=== PATIENT | female | born 1995 | race African-American/Black ===

== ENCOUNTER → 2018-07-08 11:34 | Outpatient (CLI) | payer OTHER, SELFPAY ==
[2018-07-08 12:29] LABS: Hematocrit 44.6 % (37-47); Hemoglobin 14.5 g/dl (12.0-15.0); Mean Corp Hgb Conc 32.5 g/gl (32-36); Mean Corpuscular Hgb 28.4 pg (27.0-32.0); Mean Corpuscular Volume 87.3 fL (81-99); Mean Platelet Vol. 11.5 fl (6.2-12.0); Platelet Count 266 K/mm3 (150-450); RBC Distribution Width CV 13.3 % (11.6-14.6); RBC Distribution Width SD 42.8 fl (35.1-43.9); Red Blood Count 5.11 M/mm3 (4.2-5.4); White Blood Count 6.9 K/mm3 (4.4-11.0)
[2018-07-08 12:37] LABS: Scan Indicated on CBC? Y/N NO
[2018-07-08 12:39] LABS: hCG Titer Quant., Serum < 1 mIU/mL (<9 non-preg)
[2018-07-08 12:47] LABS: Follicle Stimulating Hormone 7.4 mIU/mL; Prolactin 12.9 ng/mL; Thyroid Stim Hormone (TSH) 1.14 uIU/mL (0.358-3.74)
[2018-07-08 12:48] LABS: Progesterone Level 0.66 ng/mL (See Comment)
[2018-07-08 13:38] LABS: Hemoglobin A1c 5.6 % (4.2-6.3)
== END ==
PROVIDERS: Visit Provider Obstetrics & Gynecology
DX: N91.2 Amenorrhea, unspecified (principal)
CPT/HCPCS: 36415; 83001; 83002; 83036; 84144; 84146; 84439; 84443; 84481; 84702; 85027

== ENCOUNTER → 2018-07-22 20:36 | Outpatient (CLI) | payer OTHER, SELFPAY ==
[2018-07-22 22:53] LABS: Chlamydia Trachomatis by PCR POSITIVE (Negative); Neisserai gonorrhoeae by PCR Negative (Negative); Probe Check PASS; Sample Adequacy Control PASS; Specimen Processing Control PASS
[2018-07-27 13:38] LABS: HPV Reflexed? NOT INDICATED
== END ==
PROVIDERS: Referring Provider Obstetrics & Gynecology; Visit Provider Obstetrics & Gynecology
DX: Z12.4 Encounter for screening for malignant neoplasm of cervix (principal); Z11.3 Encounter for screening for infections with a predominantly sexual mode of transmission
CPT/HCPCS: 87491; 87591; 88175; G0145

== ENCOUNTER 2021-04-23 15:55 | Outpatient (CLI) | payer OTHER, MEDICAID, SELFPAY ==
[2021-04-23 16:21] VITALS: BP 112/59; PULSE 86; TEMP 36.3; O2SAT 98
[2021-04-23 16:26] VITALS: BP 112/59; PULSE 85
[2021-04-23 16:28] VITALS: BMI 46.5
--- NOTE | 2021-04-23 20:59 | OB.TRI.NOTE ---
HPI - General HPI Narrative SHASHI ESPINAL, is a 25 F at 38w2d who presents for vaginal spotting after vaginal exam in office today. Good movement. No LOF, denies large amount of vaginal bleeding, not wearing a pad, small amount of toilet paper. No contractions or signs of labor. Maternal Data Information Final KRISTINE: 05/05/21 PFSH PFSH Allergy/AdvReac Type Severity Reaction Status Date / Time aspirin AdvReac Other Verified 04/23/21 16:33 Latex, Natural Rubber AdvReac Rash Verified 04/23/21 16:33 Social History Smoking Status: Never smoker Physical Exam Narrative 1.5, unchanged from office NST FHR Rate Baby A Baseline: 125 Variability:: Moderate Accelerations:: 15 x 15 Decelerations:: None NST Reactive:: Yes Uterine Activity:: None Assessment & Plan (1) Vaginal bleeding during : PLAN: 1) No signs of labor 2) Bleeding precautions reviewed 3) D/C home
== END 2021-04-23 17:15 | disposition home or self-care (01) ==
LOC: WPOUT 16:06 → WP 16:07
PROVIDERS: Visit Provider Advanced Practice Midwife
DX: O46.93 Antepartum hemorrhage, unspecified, third trimester (principal); Z3A.38 38 weeks gestation of pregnancy
CPT/HCPCS: 59025; 59050; 99218; G0378

== ENCOUNTER 2021-05-01 15:11 | Inpatient (IN) | payer OTHER, MEDICAID, SELFPAY ==
[2021-05-01] VITALS (29 sets, daily range): BP systolic 78–139; BP diastolic 47–87; PULSE 67–182; TEMP 36.4–36.7; O2SAT 79–100; BMI 45.5
--- NOTE | 2021-05-01 14:31 | OB.TRI.NOTE ---
HPI - General HPI Narrative SHASHI ESPINAL, is a 25 F @ 39.3 weeks who presents s/p fall out of bed at 10am. pt reports hit left side of abdomen on floor. Denies VB, LOF. Good FM. Maternal Data Information Final KRISTINE: 05/05/21 PFS PFS Allergy/AdvReac Type Severity Reaction Status Date / Time aspirin AdvReac Other Verified 04/23/21 16:33 Latex, Natural Rubber AdvReac Rash Verified 04/23/21 16:33 Social History Smoking Status: Never smoker NST FHR Rate Baby A Baseline: 130 Variability:: Moderate Accelerations:: 15 x 15 Decelerations:: Variable (had one variable with quick return to baseline- kept on monitor and reactive cat 1 since that time. ) NST Reactive:: Yes FHR Category:: Category I Uterine Activity:: no ctx Assessment & Plan (1) Abdominal pain affecting : (2) Status post fall: PLAN: 25yo @ 39.3 weeks s/p fall from bed at 10am - well being established 1) NST reactive cat 1 2) per RN- no abdominal pain on palpation 3) follow up in office as scheduled
--- NOTE | 2021-05-01 15:00 | PCM.HP.OB ---
HPI - General HPI Narrative SHASHI ESPINAL, is a 25 F @ 39.3 weeks who was seen in triage for s/p fall was going to be dc home and had variable decelerations with good return to baseline. decision at [facility] time was to keep patient and proceed with IOL due to gestational age of 39 weeks and category 2 FHR due to variable deceleration. Maternal Data Information Final KRISTINE: 05/05/21 Final KRISTINE Source: US <20 weeks Gestational age: 39.3 PFSH PFSH Allergy/AdvReac Type Severity Reaction Status Date / Time aspirin AdvReac Other Verified 04/23/21 16:33 Latex, Natural Rubber AdvReac Rash Verified 04/23/21 16:33 Social History Smoking Status: Never smoker Vital Signs Vital Signs Vital Signs: 05/01/21 13:32 05/01/21 13:34 Temperature 97.7 F L Temperature Source Temporal Pulse Rate 83 83 Blood Pressure 118/63 118/63 BP Systolic 118 118 BP Diastolic 63 63 Pulse Ox 97 Weight Weight: 124 kg Body Mass Index (BMI) 45.5 Physical Exam Narrative VE: 3/6/-3 per RN Const alert and oriented x3 General Appearance: cooperative HEENT normocephalic GI GI Narrative: Gravid, non tender to palpation. OB / External & Speculum: external exam normal Extremity normal to inspection Skin no rashes or lesions noted Neuro oriented x3 and CN's II-XII intact bilaterally Psych Appearance: grossly normal Labs Labs Labs: Hct 44.6 % (37-47) Hgb 14.5 g/dl (12.0-15.0) C.trachomatis DNA (PCR) POSITIVE (Negative) H Assessment & Plan (1) Category II heart rate tracing during maternal care in third trimester: (2) 39 weeks gestation of : (3) Status post fall: PLAN: Admit to L&D [place] FHR/TOCO Epidural if requested for pain Monitor VS Anticipate pitocin for labor
[2021-05-01 16:12] LABS: Absolute Lymphocyte Count 1.74 X10^3/uL (0.83-4.51); Absolute Neutrophil Count 5.2 X10^3/uL (2.0-7.7); Basophil# 0.03 X10^3/uL; Basophil% 0.4 % (0-1); Eosinophils% 1.3 % (0-5); Hematocrit 37.5 % (37-47); Hemoglobin 11.9 g/dL (12.0-15.0); Lymphocyte # 1.74 X10^3/ul (0.83-4.51); Mean Corp Hgb Conc 31.7 g/dL (32-36); Mean Corpuscular Hgb 26.3 pg (27.0-32.0); Mean Corpuscular Volume 82.8 fL (81-99); Mean Platelet Vol. 12.1 fl (6.2-12.0); Monocyte% 5.3 % (0-10); NRBC Flagged by Analyzer 0 % (0-5); Neutrophil # 5.24 X10^3/uL (2.7-7.7); Neutrophil % 69.5 % (47-70); Platelet Count 232 K/mm3 (150-450); RBC Distribution Width CV 14.3 % (11.6-14.6); RBC Distribution Width SD 42.3 fl (35.1-43.9); Red Blood Count 4.53 M/mm3 (4.2-5.4); White Blood Count 7.6 K/mm3 (4.4-11.0)
[2021-05-01] MEDS: Lactated Ringers 1,000 ML 50 ML IV (16:12)
[2021-05-01] MEDS: Oxytocin 30 units/NS 500 ml 30 UNITS/500 ML IV.SOLN IV (16:25)
[2021-05-01] MEDS: Lactated Ringers 500 ML 999 ML IV ×3 (19:31→23:32)
--- NOTE | 2021-05-01 20:01 | PCM.PN.BLA ---
Progress Note pt seen at bedside, doing well. VE: /-2 AROM clear fluid. IUPC and IFM placed. Continue pitocin. Epidural if requested for pain. FHR CAT 1 reactive.
[2021-05-01] MEDS: Penicillin G 3,000,000 Units 50 ML 100 UNITS IV (20:12)
[2021-05-01] MEDS: fentaNYL-bupivacaine (epidural) 100 ML BAG EPIDURAL (20:37)
[2021-05-01] MEDS: Lactated Ringers 1,000 ML 200 ML IV (20:59)
[2021-05-01] MEDS: Amnioinfusion- 0.9% NS 1,000 ML IV.SOLN. INTRA-UTER (22:29)
[2021-05-02] VITALS (20 sets, daily range): BP systolic 98–133; BP diastolic 55–77; PULSE 76–106; RESP 16–18; TEMP 36.2–36.8
[2021-05-02] MEDS: Penicillin G 3,000,000 Units 50 ML 100 UNITS IV (00:09)
[2021-05-02] MEDS: Ondansetron 4 MG/2 ML Vial IV (01:08)
[2021-05-02] MEDS: Mag Hydrox/Al Hydrox/Simeth 30 ML UDC PO (01:21)
[2021-05-02] MEDS: Oxytocin 30 units/NS 500 ml 30 UNITS/500 ML IV.SOLN 334 UNITS IV (01:40)
--- NOTE | 2021-05-02 01:44 | OP.PCM_ITS ---
Assessment & Plan (1) Vaginal delivery: Vaginal Delivery Maternal Presentation Maternal Presentation: Medically Indicated Induction Maternal Presentation: variable decelerations on FHR tracing while in triage. Type of Induction: Pitocin and Amniotomy Operative Information Date of Procedure: 05/02/21 Pre-Operative Diagnosis: variable deceleration on FHR tracing, Term gestation Post-Operative Diagnosis: same, live male Surgery / Procedure Performed: Spontaneous Vaginal Delivery Type of Anesthesia: Epidural Drain: Lackey to straight drain Estimated Blood Loss: 50 Time of Delivery: 01:37 Findings Description of Procedure: Patient was examined and was found to be fully dilated. Good maternal pushing efforts delivered the head umbilical cord noted right next to the head no nuchal appreciated. This cord was likely the cause of the prolonged decelerations and variable decelerations that were present during labor. At this time once in head was delivered gentle downward traction and good maternal pushing efforts delivered the anterior shoulder followed by the rest the infant's body. was vigorous at time of delivery and placed on the mother's chest for immediate skin to skin. Delayed cord clamping was performed. Cord was then clamped and cut. Placenta was delivered without complication. Pitocin was initiated. Vaginal exam revealed no lacerations. Presentation: Vertex Amniotic Membrane Rupture Type: Artificial Amniotic Fluid Description: Clear Placental Delivery Description: Spontaneous Placenta Disposition: [facility] Specimen(s) Removed: Placenta Cord Vessel Description: 3 Vessels Cord Entanglement: None and - (Loop of cord sitting next to the head- likely causing compression) A Gender: Male (1 minute): 8 (5 minute): 9 Delayed Cord Clamping: Yes Post Vaginal Delivery Medications Given After Delivery: IV Pitocin Episiotomy Description: None Laceration: None Complication Complications: None Admit VTE Documentation VTE Present on Admission: No VTE Mechan Device Prophylaxis: None VTE Pharm Prophylaxis Ordered: No
[2021-05-02] MEDS: Acetaminophen 500 MG Tablet 1000 MG PO ×2 (10:47→19:28)
[2021-05-02] MEDS: Hydrocortisone 2.5% Crm 1 APPLIC TOPICAL (10:48)
[2021-05-02] MEDS: Senna/Docusate Sodium 1 Tablet PO (19:28)
[2021-05-03 01:00] VITALS: BP 133/62; PULSE 70; RESP 16; TEMP 36.6
[2021-05-03 01:16] VITALS: BP 133/62; PULSE 70
[2021-05-03] MEDS: Acetaminophen 500 MG Tablet 1000 MG PO (03:12)
--- NOTE | 2021-05-03 08:38 | PCM.PN.OB ---
Subjective Subjective Patient seen at bedside. Feeling good. with support. Denies any pain. Ambulating and voiding without difficulty. Desires discharge home today. Objective Data Objective Data Vital Signs: Vital Signs Temp Pulse Resp BP Pulse Ox 97.9 F 70 16 133/62 H 79 05/03/21 01:00 05/03/21 01:16 05/03/21 01:00 05/03/21 01:16 05/01/21 20:41 Oxygen Delivery Method Room Air Weight: 273 lb 5.971 oz Body Mass Index (BMI) 45.5 Intake & Output: Intake and Output for Last 24 Hours 05/01/21 05/02/21 05/03/21 23:59 23:59 23:59 Intake Total 1038.96 / 1038.96 2562.93 / 2562.93 Output Total 800 / 800 350 / 350 Balance 238.96 / 238.96 2212.93 / 2212.93 Lab / Micro Data Result Diagrams: 05/01/21 15:50 Micro: Microbiology 05/01/21 15:55 Mucosa - Nose SARS-CoV-2 Antigen (Rapid) - Final ROS Eyes Eyes: Denies blurry vision, change in vision or spots in vision ENT HEENT: Denies dizziness or headache(s) Cardiovascular Cardiovascular: Denies abdominal pain, chest pain or dyspnea Respiratory/Chest Respiratory/Chest: Denies cough, dyspnea, shortness of breath at rest or shortness of breath with exertion Gastrointestinal Gastrointestinal: Denies abdominal pain, diarrhea or vomiting Genitourinary Genitourinary: Denies change in urinary stream, difficulty urinating or dysuria Musculoskeletal Musculoskeletal: Reports none Integumentary Integumentary: Denies rash Neurologic Neurologic: Denies dizziness, headache(s), memory loss or weakness Assessment & Plan (1) Vaginal delivery: PLAN: PPD #2 Routine care support Discharge home
--- NOTE | 2021-05-03 08:44 | PCM.DC ---
Discharge Instructions Diet Discharge Diet: No restrictions Activity May resume sexual activity in: 6-8 weeks Weight Bearing Status: Weight bearing as tolerated Dressing / Incision Call your doctor if you observe: Fever of 101 or Higher, Inability to urinate, Using more than 1 pad per hour, Shortness of breath, Chest pain, Calf discomfort and Uncontrolled pain Follow Up Care Please Follow Up With: Veronica Mcneill CNM When: 2 weeks virtual visit/ 6 weeks in office Test Results: Test results from this visit will be discussed in further detail at your follow-up appointment, if applicable. Discharge Plan Admission Admit Date/Time: 05/01/21 15:11 Primary Reason for Your Visit: Attending Provider: Radhika Fernandes Primary Care Provider: Care Physician,Kimberley Primary Instructions Patient Instructions: After a Vaginal , Breast Care After Discharge Orders/Prescriptions Referrals / Follow Up: Care Physician,No Primary [Primary Care Provider] - Disposition Disposition (needs filled in before D/C Order can be placed): Home, Self Care
[2021-05-03 09:21] VITALS: BP 127/70; PULSE 88
[2021-05-03 09:30] VITALS: BP 127/70; PULSE 88; RESP 16; TEMP 36.4
[2021-05-03] MEDS: Ibuprofen 600 MG Tablet PO (12:34)
[2021-05-03 13:58] VITALS: BP 125/74; PULSE 85
[2021-05-03 14:00] VITALS: BP 125/74; PULSE 84; RESP 18; TEMP 36.6
== END 2021-05-03 16:50 | disposition home or self-care (01) | DRG 807 ==
LOC: WPOUT 15:13 → WP 15:13
PROVIDERS: Admitting Provider Obstetrics & Gynecology; Visit Provider Obstetrics & Gynecology
DX: O76 Abnormality in fetal heart rate and rhythm complicating labor and delivery (principal); Z37.0 Single live birth; Z3A.39 39 weeks gestation of pregnancy
CPT/HCPCS: 59025; 59050; 85025; 86850; 86900; 86901; 87426; 99218; J7030; J7120; G0378; J2405